=== PATIENT | female | born 1940 | race Caucasian/White ===

== ENCOUNTER 2017-01-09 12:23 | Emergency (ER) | payer MEDICARE, OTHER ==
[~2017-01-09] VITALS: Wt 65.0 kg
[~2017-01-09 12:23] MED LIST: AMLO-147 PO; ASPI81TA3 PO; ATOR10TA65 PO; COLACE; GABA100C14 PO; GLIP5TAB13 PO; LOSA1TAB21 PO; METF850T PO; NEURONTIN; NIT3 SL; NIT4 SL; OMEP20CA16 PO; OMEPRAZOLE
--- NOTE | 2017-01-09 14:21 | RADRPT ---
PROCEDURE: XR Chest. CLINICAL INDICATION: Chest pain TECHNIQUE: Single frontal chest x-ray. COMPARISON: 03/20/2016 FINDINGS: The lungs are clear. No focal opacification is seen. No pneumothorax or pleural effusion is seen. Aortic arch atherosclerotic calcifications are present. Otherwise, the cardiomediastinal silhouett e is unremarkable. Senescent changes of the axial skeleton are noted IMPRESSION: 1. No evidence of acute cardiopulmonary disease. 2. Aortic atherosclerosis. RPTAT: JJ .Kevin Rojas MD, Date Time Electronically viewed and signed by .Kevin Rojas MD, on 01/09/2017 14:21 .A/
[2017-01-09 14:39] LABS: ADD SCAN DIFF NO
[2017-01-09 14:42] LABS: BASOPHIL # 0.1 10^3/ul (0.0-0.1); BASOPHILS % 0.4 % (0.0-2.0); EOSINOPHILS # 0.1 10^3/ul (0.0-0.5); EOSINOPHILS % 0.7 % (0.0-7.0); HEMATOCRIT 41.5 % (37.0-47.0); LYMPHOCYTES # 1.8 10^3/ul (0.8-2.9); MEAN CORPUSCULAR HEMOGLOBIN 26.8 pg (29.0-33.0); MEAN CORPUSCULAR HGB CONC 31.3 g/dl (32.0-37.0); MEAN CORPUSCULAR VOLUME 85.6 fl (82.0-101.0); MEAN PLATELET VOLUME 11.8 fl (7.4-10.4); MONOCYTE # 1.1 10^3/ul (0.3-0.9); NEUTROPHIL # 10.7 10^3/ul (1.6-7.5); NEUTROPHILS % 77.5 % (39.0-77.0); PLATELET COUNT 218 10^3/UL (140-415); RED BLOOD COUNT 4.85 10^6/ul (4.20-5.40); WHITE BLOOD COUNT 13.8 10^3/ul (4.8-10.8)
[2017-01-09] MEDS ORDERED: CHOL4POW PO (14:52)
[2017-01-09] MEDS ORDERED: HYDR28.39 RC (14:53)
[2017-01-09] MEDS ORDERED: PHEN1SUP80 PR (14:54)
[2017-01-09 15:01] LABS: ALBUMIN 4.2 g/dl (3.3-4.9)
[2017-01-09 15:02] LABS: CHLORIDE 97 mmol/L (97-110); SODIUM 139 mmol/L (135-144)
[2017-01-09 15:04] LABS: ANION GAP 20 (8-16); ASPARTATE AMINO TRANSFERASE 17 IU/L (15-46); BILIRUBIN,INDIRECT 0.1 mg/dl (0-1.1); BILIRUBIN,TOTAL 0.1 mg/dl (0.2-1.3); CARBON DIOXIDE 26 mmol/L (21-31); CREATININE 0.82 mg/dl (0.44-1.00)
[2017-01-09 15:05] LABS: ALANINE AMINOTRANSFERASE 23 IU/L (13-69); ALBUMIN/GLOBULIN RATIO 1.07; ALKALINE PHOSPHATASE 100 IU/L (42-121); BLOOD UREA NITROGEN 16 mg/dl (7-20); CALCIUM 9.5 mg/dl (8.4-10.2); GLUCOSE 265 mg/dl (70-220); TOTAL PROTEIN 8.1 g/dl (6.1-8.1)
[2017-01-09 15:10] LABS: ADD UMIC YES; URINE BILIRUBIN (Dip) NEGATIVE (NEGATIVE); URINE BLOOD (Dip) NEGATIVE (NEGATIVE); URINE COLOR LT. YELLOW (YELLOW); URINE KETONES (Dip) NEGATIVE (NEGATIVE); URINE LEUKOCYTE ESTERASE (Dip) TRACE (NEGATIVE); URINE NITRITE (Dip) NEGATIVE (NEGATIVE); URINE TOTAL PROTEIN (Dip) 2+ (NEGATIVE); URINE UROBILINOGEN (Dip) 0.2 E.U./dL (0.1-1.0)
[2017-01-09 15:13] LABS: B-TYPE NATRIURETIC PEPTIDE 628 PG/ML (0-450)
[2017-01-09 15:16] LABS: TROPONIN-I < 0.012 ng/ml (0.00-0.12)
[2017-01-09 15:19] LABS: BACTERIA,URINE OCCASIONAL; URINE RBCS 0-2 /HPF (0)
--- NOTE | 2017-01-09 16:32 | ERD ---
ER Documentation Chief Complaint Date/Time DATE: 01/09/17 TIME: 16:24 Chief Complaint chest pain radiating to left arm, on and off since last night, no sob HPI 76-year-old woman presents with left-sided chest pain similar multiple previous episodes. Pain lasted for about 10-15 minutes was sharp, nonexertional nonradiating. She has had these intermittent episodes for the last 3-4 days without cough, fever, dizziness, or nausea or vomiting. She denies vomiting or diarrhea, no headache or blurry vision, and the pain is been similar to previous episodes and has been nonexertional and nonradiating. Coronary angiogram performed about a year ago was unremarkable. ROS All systems reviewed and are negative except as per history of present illness. Medications Home Meds Reported Medications Phenylephrine HCl/[place] Butter* (Preparation H* Suppository) 1 Each Supp.rect, 1 EACH ID BID Y for PRN, SUPP.RECT 01/09/17 Hydrocortisone (PROCTOSOL-HC) 28.35 Gm Cream..g., 28.35 GM RC PRN Y for PRN 01/09/17 Choestyramine* (Cholestyramine* Packet) 4 Gm Powd.pack, 4 GM PO TID, PACKET 01/09/17 Gabapentin* (Gabapentin*) 100 Mg Capsule, 100 MG PO DAILY, #90 CAP 03/20/16 Omeprazole* (Omeprazole*) 20 Mg Capsule.dr, 20 MG PO DAILY, #30 CAP 03/20/16 Amlodipine Besylate* (Amlodipine Besylate*) 10 Mg Tablet, 10 MG PO DAILY, #30 TAB 03/20/16 Atorvastatin (Atorvastatin) 10 Mg Tablet, 10 MG PO QHS, #30 TAB 03/20/16 Glipizide* (Glipizide*) 5 Mg Tablet, 5 MG PO BID WITH MEALS, TAB 03/17/14 Metformin Hcl* (Metformin Hcl*) 850 Mg Tablet, 850 MG PO TID, TAB 03/17/14 Losartan-Hydrochlorothiazide (Losartan-HCTZ) 100-12.5 Mg Tab, 1 TAB PO DAILY, TAB 03/17/14 Aspirin* (Aspirin* Chew) 81 Mg Tab.chew, 81 MG PO DAILY, TAB.CHEW 03/17/14 Discontinued Reported Medications Nitroglycerin* (Nitrostat*) 0.4 Mg Tab.subl, 0.4 MG SL Q5MIN Y for CHEST PAIN, BOTTLE 03/20/16 Nitroglycerin* (Nitrostat*) 0.3 Mg Tab.subl, 0.3 MG SL Q5MIN Y for CHEST PAIN, BOTTLE 03/20/16 [Neurontin] No Conflict Check 01/08/16 [Colace] No Conflict Check 01/08/16 [Omeprazole] No Conflict Check 01/08/16 Allergies Allergies: Coded Allergies: No Known Allergy (Unverified , 01/09/17) PMhx/Soc Hypertension, depression, diabetes mellitus, coronary angiogram a year ago revealing clean coronary arteries with maximum 20% stenosis overall consistent with nonobstructive coronary artery disease. History of Surgery: Yes (BTL) Anesthesia Reaction: No Hx Neurological Disorder: No Hx Respiratory Disorders: No Hx Cardiac Disorders: Yes (HTN,HYPERCHOLESTEROLEMIA) Hx Psychiatric Problems: No Hx Miscellaneous Medical Probl: No Hx Alcohol Use: No Hx Substance Use: No Hx Tobacco Use: No Smoking Status: Never smoker FmHx Family History: No diabetes Physical Exam Vitals Vital Signs Date Time Temp Pulse Resp B/P Pulse Ox O2 Delivery O2 Flow Rate FiO2 01/09/17 16:45 98.1 74 18 119/54 98 Room Air 01/09/17 15:30 98.1 79 18 140/59 100 Room Air 01/09/17 12:25 98.1 95 18 153/67 97 Physical Exam GENERAL: Well-developed, well-nourished, well-hydrated, in no apparent distress , looks nontoxic in appearance HEENT: Moist mucous membranes, pink conjunctiva, no cervical spine tenderness or step-off deformities, no goiter, no jaundice or icterus, extraocular movements intact without pain. No submandibular induration, and no pharyngeal erythema NEURO: Alert and oriented 3, cranial nerves II through XII intact bilaterally, pupils equal round reactive to light, no focal deficits or facial asymmetry, sensation intact distally Strength 5/5 in upper and lower extremities bilaterally CARDIAC: Regular rate and rhythm, no murmurs rubs or gallops LUNGS: Clear bilaterally no wheezing crackles or stridor ABDOMEN: Soft nontender, no guarding, no rigidity, no rebound, no psoas sign no obturator sign. Normoactive bowel sounds SKIN: Warm and dry to touch, no abrasions, contusions, or hematomas, no lacerations, no ecchymosis, no target lesions, and without ulcers EXTREMITIES: No clubbing cyanosis or edema, calves are bilaterally symmetrical, no Homans sign, no popliteal cord sign. Distal pulses equal and bilateral PSYCH: Normal affect without agitation or irritability Result Diagram: 01/09/17 1410 01/09/17 1410 Results 24 hrs Laboratory Tests Test 01/09/17 14:10 01/09/17 14:20 White Blood Count 13.810^3/ul Red Blood Count 4.8510^6/ul Hemoglobin 13.0g/dl Hematocrit 41.5% Mean Corpuscular Volume 85.6fl Mean Corpuscular Hemoglobin 26.8pg Mean Corpuscular Hemoglobin Concent 31.3g/dl Red Cell Distribution Width 15.0% Platelet Count 46550^3/UL Mean Platelet Volume 11.8fl Neutrophils % 77.5% Lymphocytes % 13.0% Monocytes % 8.0% Eosinophils % 0.7% Basophils % 0.4% Nucleated Red Blood Cells % 0.0/100WBC Neutrophils # 10.710^3/ul Lymphocytes # 1.810^3/ul Monocytes # 1.110^3/ul Eosinophils # 0.110^3/ul Basophils # 0.110^3/ul Nucleated Red Blood Cells # 0.010^3/ul Sodium Level 139mmol/L Potassium Level 4.0mmol/L Chloride Level 97mmol/L Carbon Dioxide Level 26mmol/L Anion Gap 20 Blood Urea Nitrogen 16mg/dl Creatinine 0.82mg/dl Glucose Level 265mg/dl Calcium Level 9.5mg/dl Total Bilirubin 0.1mg/dl Direct Bilirubin 0.00mg/dl Indirect Bilirubin 0.1mg/dl Aspartate Amino Transf (AST/SGOT) 17IU/L Alanine Aminotransferase (ALT/SGPT) 23IU/L Alkaline Phosphatase 100IU/L Troponin I < 0.012ng/ml B-Type Natriuretic Peptide 628PG/ML Total Protein 8.1g/dl Albumin 4.2g/dl Globulin 3.90g/dl Albumin/Globulin Ratio 1.07 Lipase 22U/L Urine Color LT. YELLOW Urine Clarity CLEAR Urine pH 6.5 Urine Specific [place] 1.015 Urine Ketones NEGATIVE Urine Nitrite NEGATIVE Urine Bilirubin NEGATIVE Urine Urobilinogen 0.2 E.U./dL Urine Leukocyte Esterase TRACE Urine Microscopic RBC 0-2/HPF Urine Microscopic WBC 2-5/HPF Urine Epithelial Cells MANY Urine Bacteria OCCASIONAL Urine Hemoglobin NEGATIVE Urine Glucose 0.5%% Urine Total Protein 2+ Procedures/MDM IV line was established patient was placed on pvc monitor rhythm strip revealed a sinus rhythm at about 90 bpm with upright P and T waves. Patient was afebrile. EKG performed, read by me revealed a normal sinus rhythm at 92 bpm, left axis deviation, narrow QRS complex, no concerning ST elevations or depressions noted. I reviewed patient's previous medical records including her cardiology consultation and most recent coronary angiography results. Chest X-ray 1V Interpreted by me: Soft Tissue: No acute abnormalities Bones: No acute abnormalities Mediastinum/Cardiac Silhouette/Lungs: No acute abnormalities CBC was unremarkable, electrolytes revealed dehydration with a BUN/creatinine of 16/0.8, liver function tests were normal, troponin was negative, BNP was low at about 600. Urine analysis was negative for infection. The patient's history, physical exam and clinical presentation is concerning for possible cardiogenic etiology and acute coronary syndrome. Based on the patient's clinical exam and history and risk factors, I have a much lower clinical concern for pulmonary embolism, acute aortic dissection, pneumothorax, pneumonia, cardiac tamponade HEART Score: 4 MACE Rate: About 16% Shared Decision Making: We had a conversation regarding risk stratification, MACE rate, and the risks, benefits, alternatives of disposition planning options. Disposition planning: I had a long talk with the patient and her family member who is at the bedside, patient's symptoms improved, she has no complaints of chest pain or shortness of breath and her vital signs are all normal. They both preferred outpatient management. I do not suspect today's chest pain represented acute coronary syndrome although I did have a long discussion with her moving worker over the phone regarding her presentation, symptomatology, and ED workup. He agreed that the patient does not require inpatient management and could follow-up in the office early next week. I called the office directly and they scheduled her an appointment for Thursday. Both the risks and benefits of inpatient versus outpatient management were discussed and patient preferred following up with her PMD and her moving worker. Differential diagnoses considered, included but not limited to acute coronary syndrome, pulmonary embolism, aortic dissection, abdominal aortic aneurysm, sepsis, stroke, meningitis, encephalitis, pneumonia, appendicitis, cholecystitis , bowel obstruction, pyelonephritis, nephrolithiasis, cystitis, as well as metabolic, hematologic, and electrolyte abnormalities. As well as abscess, cellulitis, fractures, and dislocations. Patient feels much better at this time, and vital signs are normal, symptoms have improved. I did give strict instructions to return to the ED if symptoms continue or worsen, patient will otherwise follow-up with primary care physician. Patient understood instructions and agreed to plan. Disclaimer: Inadvertent spelling or grammatical errors are likely due to EHR/ dictation software use and do not reflect on the overall quality of patient care. Departure Diagnosis: Primary Impression: Chest pain Chest pain type: unspecified Qualified Code: R07.9 - Chest pain, unspecified type Condition: Good Patient Instructions: Chest Pain, Uncertain Cause JERICA MURDOCK MD January 09, 2017 16:32
[2017-01-09 16:45] VITALS: BP 119/54; PULSE 74; RESP 18; TEMP 98.1
== END 2017-01-09 16:47 | disposition home or self-care (01) ==
LOC: E/R 12:23
DX: R07.9 Chest pain, unspecified (principal); I10 Essential (primary) hypertension; E11.9 Type 2 diabetes mellitus without complications; Z79.82 Long term (current) use of aspirin; Z79.84 Long term (current) use of oral hypoglycemic drugs
CPT/HCPCS: 36415; 71010; 80053; 81001; 81003; 83690; 83880; 84484; 85025; 93005